=== PATIENT | male | born 1990 | race Two or more races ===

== ENCOUNTER 2017-12-16 21:18 | Emergency (ER) | payer OTHER ==
[~2017-12-16] VITALS: Ht 165.1 cm; Wt 72.6 kg
[~2017-12-16 21:18] MED LIST: BENICAR20 MG PO; PROTONIX40 MG PO; ZANTAC150 MG PO; ZOFRAN8 MG
[2017-12-16] MEDS ORDERED: ZANTAC 7575 MG (21:34)
[2017-12-16] MEDS ORDERED: PROTONIX40 MG (21:34)
== END 2017-12-16 23:28 | disposition home or self-care (01) ==
LOC: ER 21:18
DX: K29.70 Gastritis, unspecified, without bleeding (principal); R42 Dizziness and giddiness

== ENCOUNTER 2018-11-13 16:22 | Emergency (ER) | payer OTHER ==
[~2018-11-13] VITALS: Ht 170.2 cm; Wt 65.8 kg
[~2018-11-13 16:22] MED LIST changes: +PROTONIX40 MG; +ZANTAC 7575 MG
== END 2018-11-13 18:47 | disposition home or self-care (01) ==
LOC: ER 16:22
DX: J11.1 Influenza due to unidentified influenza virus with other respiratory manifestations (principal)

== ENCOUNTER 2019-07-03 16:49 | Emergency (ER) | payer OTHER ==
[~2019-07-03] VITALS: Ht 167.6 cm; Wt 65.8 kg
== END 2019-07-03 20:27 | disposition home or self-care (01) ==
LOC: ER 16:49
DX: K52.89 Other specified noninfective gastroenteritis and colitis (principal)

== ENCOUNTER 2020-03-20 14:49 | Emergency (ER) | payer OTHER ==
[~2020-03-20] VITALS: Ht 167.6 cm; Wt 67.1 kg
== END 2020-03-20 17:54 | disposition home or self-care (01) ==
LOC: ER 14:49
DX: S30.0XXA Contusion of lower back and pelvis, initial encounter (principal); S50.01XA Contusion of right elbow, initial encounter; W10.8XXA Fall (on) (from) other stairs and steps, initial encounter; Y93.89 Activity, other specified; Y92.018 Other place in single-family (private) house as the place of occurrence of the external cause; Y99.8 Other external cause status

== ENCOUNTER 2020-04-24 12:32 | Emergency (ER) | payer OTHER ==
[~2020-04-24] VITALS: Ht 167.6 cm; Wt 68.0 kg
[2020-04-24] MEDS ORDERED: FAMOTIDINE20 MG PO (12:48)
== END 2020-04-24 13:55 | disposition home or self-care (01) ==
LOC: ER 12:32
DX: S05.02XA Injury of conjunctiva and corneal abrasion without foreign body, left eye, initial encounter (principal); W22.8XXA Striking against or struck by other objects, initial encounter; Y93.89 Activity, other specified; Y92.89 Other specified places as the place of occurrence of the external cause; Y99.8 Other external cause status

== ENCOUNTER 2022-12-26 04:55 | Emergency (ER) | payer OTHER ==
[~2022-12-26] VITALS: Ht 170.2 cm; Wt 70.3 kg
[~2022-12-26 04:55] MED LIST changes: +FAMOTIDINE20 MG PO
[2022-12-26] MEDS ORDERED: PRILOSEC OTC20 MG PO (08:22)
== END 2022-12-26 08:35 | disposition home or self-care (01) ==
LOC: ER 04:55
DX: K29.70 Gastritis, unspecified, without bleeding (principal); R53.81 Other malaise; I10 Essential (primary) hypertension